=== PATIENT | female | born 1990 | race Caucasian/White ===

== ENCOUNTER 2016-10-04 19:54 | Outpatient (CLI) | payer OTHER ==
[~2016-10-04] VITALS: Ht 160 cm; Wt 65.7 kg
[~2016-10-04 19:54] MED LIST: CIPRO250 MG PO; DHA100 MG PO; FLOMAX0.4 MG PO; IBUPROFEN800 MG PO; NAPROXEN500 MG PO; PERCOCET 5/31 TABLET PO; PRENATAL TABLE1 EAC3 PO; TORADOL10 MG PO; ZOFRAN4 MG PO; ZOVIRAX400 MG PO; ZYRTEC10 M3 PO
[2016-10-04 20:15] VITALS: BP 115/67
[2016-10-04] MEDS ORDERED: TIROSINT75 MCG PO (20:35)
[2016-10-04 22:34] LABS: PROBE CHECK PASS
== END 2016-10-04 21:25 | disposition home or self-care (01) ==
LOC: LDRP-OP 19:54 → 2WEST 19:55 → LDRP-OP 12-01 13:10
PROVIDERS: Advanced Practice Midwife
DX: O26.893 Other specified pregnancy related conditions, third trimester (principal); Z3A.36 36 weeks gestation of pregnancy
CPT/HCPCS: 59025; 87653; G0378

== ENCOUNTER 2016-10-05 15:25 | Inpatient (IN) | payer OTHER ==
[2016-10-05] VITALS (12 sets, daily range): BP systolic 103–120; BP diastolic 56–80
[~2016-10-05] VITALS: Ht 160 cm; Wt 67.1 kg
[~2016-10-05 15:25] MED LIST changes: +TIROSINT75 MCG PO
[2016-10-05 16:16] LABS: EOSINOPHIL (%) 2.4 % (0-5); EOSINOPHIL COUNT 0.3 K/uL (0-0.3); IMMATURE GRANULOCYTE (%) 1.3 % (0.0-0.7); IMMATURE GRANULOCYTE COUNT 0.1 K/uL; INSTRUMENT ABS NEUTROPHIL CT 7.3 K/uL; LYMPHOCYTE COUNT 2.4 K/uL (1.0-2.8); MCH 26.7 PG (29.0-34.0); MCHC 32.3 G/DL (30.0-36.0); MCV 82.9 FL (83-99); MEAN PLAT.VOLUME 11.1 uM^3 (9.5-12.4); MONOCYTE (%) 7.1 % (3-12); MONOCYTE COUNT 0.8 K/uL (0-0.8); NEUTROPHIL (%) 67.1 % (45-76); NEUTROPHIL COUNT 7.3 K/uL (1.8-6.4); PLATELET COUNT 189 K/uL (156-360); RBC DIS.WIDTH-CV 13.3 % (11.8-14.6); RBC DIS.WIDTH-SD 40.3 % (39-53); RED BLOOD COUNT 3.74 M/uL (3.80-5.20); WHITE BLOOD COUNT 10.8 K/uL (4.1-10.2)
[2016-10-06] VITALS (14 sets, daily range): BP systolic 91–127; BP diastolic 56–79
[2016-10-07 05:41] LABS: EOSINOPHIL (%) 0.3 % (0-5); EOSINOPHIL COUNT 0.1 K/uL (0-0.3); HEMATOCRIT 30.4 % (36.0-46.0); IMMATURE GRANULOCYTE (%) 1.9 % (0.0-0.7); IMMATURE GRANULOCYTE COUNT 0.4 K/uL; INSTRUMENT ABS NEUTROPHIL CT 16.3 K/uL; LYMPHOCYTE COUNT 3.2 K/uL (1.0-2.8); MCH 27.1 PG (29.0-34.0); MCHC 32.2 G/DL (30.0-36.0); MCV 84.2 FL (83-99); MEAN PLAT.VOLUME 11.1 uM^3 (9.5-12.4); MONOCYTE (%) 7.5 % (3-12); MONOCYTE COUNT 1.6 K/uL (0-0.8); NEUTROPHIL (%) 75.3 % (45-76); NEUTROPHIL COUNT 16.3 K/uL (1.8-6.4); PLATELET COUNT 233 K/uL (156-360); RBC DIS.WIDTH-CV 13.5 % (11.8-14.6); RBC DIS.WIDTH-SD 41.8 % (39-53); RED BLOOD COUNT 3.61 M/uL (3.80-5.20); WHITE BLOOD COUNT 21.6 K/uL (4.1-10.2)
[2016-10-07 07:41] VITALS: BP 107/71
[2016-10-07] MEDS ORDERED: FERROUS GLUCON324 MG PO (12:53)
[2016-10-07] MEDS ORDERED: IBUPROFEN800 MG PO (12:53)
== END 2016-10-07 13:53 | disposition home or self-care (01) | DRG 775 ==
LOC: LDRP-OP 15:25 → 2WEST 15:27 → LDRP-OP 12-01 22:08
PROVIDERS: Advanced Practice Midwife
PROC: 3E033VJ Introduction of Other Hormone into Peripheral Vein, Percutaneous Approach (ICD-10-PCS; principal; 2016-10-05)
PROC: 10E0XZZ Delivery of Products of Conception, External Approach (ICD-10-PCS; 2016-10-06)
DX: O60.14X0 Preterm labor third trimester with preterm delivery third trimester, not applicable or unspecified (principal); O42.913 Preterm premature rupture of membranes, unspecified as to length of time between rupture and onset of labor, third trimester; O99.02 Anemia complicating childbirth; D62 Acute posthemorrhagic anemia; O99.284 Endocrine, nutritional and metabolic diseases complicating childbirth; E03.9 Hypothyroidism, unspecified; O99.824 Streptococcus B carrier state complicating childbirth; Z37.0 Single live birth; Z3A.36 36 weeks gestation of pregnancy; H91.92 Unspecified hearing loss, left ear
CPT/HCPCS: 85025; 87070; 87075; 87077; 87186; 87205; 87653; 88307; C1755; G0378; J0595; J0702; J2540; J3010; J7120